=== PATIENT | male | born 1980 | race Caucasian/White ===

== ENCOUNTER 2019-02-03 08:08 | Emergency (ER) | payer OTHER ==
[~2019-02-03] VITALS: Ht 172.7 cm; Wt 75.7 kg
[2019-02-03] MEDS ORDERED: BENADRYL25 MG (08:13)
== END 2019-02-03 15:48 | disposition home or self-care (01) ==
LOC: ER 08:08 → CPU-OBS 10:19 → ER 10:19
DX: R07.89 Other chest pain (principal)
CPT/HCPCS: G0378; G0379; 93005